=== PATIENT | male | born 1990 | race African-American/Black ===

== ENCOUNTER 2022-07-19 20:23 | Emergency (ER) | payer OTHER ==
[~2022-07-19] VITALS: Ht 188 cm; Wt 77.1 kg
[2022-07-20] MEDS ORDERED: KETO10TA2 PO (05:50)
[2022-07-20] MEDS ORDERED: AMOX-CLAV 875-1 EAC1 PO (05:50)
== END 2022-07-20 05:58 | disposition home or self-care (01) ==
LOC: ER 20:23
DX: K05.219 Aggressive periodontitis, localized, unspecified severity (principal); K04.7 Periapical abscess without sinus

== ENCOUNTER 2023-04-17 15:17 | Emergency (ER) | payer OTHER ==
[~2023-04-17] VITALS: Ht 188 cm; Wt 94.3 kg
[~2023-04-17 15:17] MED LIST: AMOX-CLAV 875-1 EAC1 PO; KETO10TA2 PO
[2023-04-17] MEDS ORDERED: ODEFSEY TABLET1 EACH (15:25)
== END 2023-04-17 16:35 | disposition home or self-care (01) ==
LOC: ER 15:17
DX: H72.90 Unspecified perforation of tympanic membrane, unspecified ear (principal)